=== PATIENT | female | born 1970 | race Caucasian/White ===

== ENCOUNTER → 2017-02-10 | Outpatient (CLI) | payer BC ==
[~2017-02-10] MED LIST: DTR/5 PO; FUROSEMIDE 10 MG/ML 10 ML VIAL IV ONE; LEVO25TA5 PO; SULF800T23 PO
--- NOTE | 2017-02-10 14:19 | DIAGNOSTIC IMAGING REPORT ---
Renal scan RENAL SCAN DIURETIC (MAG 3) CLINICAL HISTORY: R/O OBSTRUCTION, HX LEFT URETHRAL STRICTURE obstruction. Urethral stricture. TECHNIQUE: Study is acquired multi phase fashion following the administration of 8.3 mCi of technetium 99m MAG3. COMPARISON STUDY: None FINDINGS: Uptake curves are considered unremarkable. Split renal function demonstrates a left to contribute 45% and the right 55% in terms of overall renal function. There is appropriate washout with no obstructive change. There is appropriate response of widespread to Lasix bilaterally. There are no obstructive characteristics. IMPRESSION: Normal study. Normal washout bilaterally with no evidence for obstructive characteristics Electronically signed by: Familia Sandhu M.D. 02/10/2017 2:17 PM Dictated Date/Time: 02/10/2017 2:15 PM
== END | disposition home or self-care (01) ==
LOC: C.NUCL 12:10
PROVIDERS: ATTEND Urology
DX: N13.5 Crossing vessel and stricture of ureter without hydronephrosis (principal)

== ENCOUNTER → 2017-10-08 | Outpatient (CLI) | payer BC ==
[~2017-10-08] MED LIST changes: -FUROSEMIDE 10 MG/ML 10 ML VIAL IV ONE
--- NOTE | 2017-10-08 14:10 | DIAGNOSTIC IMAGING REPORT ---
RENAL ULTRASOUND CLINICAL HISTORY: Left ureteral stricture. COMPARISON STUDY: Renal MAG3 study February 10, 2017. TECHNIQUE: Sonography of the kidneys and the urinary bladder was performed. FINDINGS: The right kidney measures 11.6 x 4.7 x 4.7 cm and the left measures 10.9 x 4.4 x 4.6 cm. There is no right hydronephrosis. There is mild left collecting system dilatation. Two apparent right ureteral jets were identified. This may be due to reimplantation of the left ureter. Bladder is unremarkable. Renal echogenicity, size and cortical thickness are normal. IMPRESSION: 1. Mild left collecting system dilatation. No right hydronephrosis. 2. Normal renal size and cortical thickness. Electronically signed by: Scottie Red M.D. 10/08/2017 2:09 PM Dictated Date/Time: 10/08/2017 1:59 PM
== END | disposition home or self-care (01) ==
LOC: C.ULTR 13:01
PROVIDERS: ATTEND Urology
DX: N13.5 Crossing vessel and stricture of ureter without hydronephrosis (principal)